=== PATIENT | male | born 1955 | race American Indian/Alaskan Native ===

== ENCOUNTER 2018-03-04 18:49 | Emergency (ER) | payer MEDICARE, OTHER ==
[2018-03-04 18:49] VITALS: BMI 30.9
[2018-03-04 18:56] VITALS: TEMP 97.3
[2018-03-04] MEDS ORDERED: Albuterol-Ipratrop 3 mg / 0.5 (3 ml) UD INH STA (19:16)
[2018-03-04] MEDS ORDERED: Albuterol-Ipratrop 3 mg / 0.5 (3 ml) UD ONE ×2 (19:19→19:32)
[2018-03-04] MEDS ORDERED: Magnesium Sulfate 1 gm in D5W 2 GM/200 ML BAG IVPB ONE (19:20)
[2018-03-04] MEDS: Magnesium Sulfate 1 gm in D5W 1 GM/100 ML BAG IVPB SCH ×2 (19:25→20:32)
[2018-03-04 19:26] LABS: BASO # 0.1 K/uL (0.0-0.2); BASO % 0.5 % (0.0-2.0); EOS % 0.1 % (0.0-4.0); HEMOGLOBIN 14.2 g/dL (12.0-18.0); LYMPH # 1.7 K/uL (1.0-4.3); LYMPH % 14.2 % (20.0-40.0); MEAN CORPUSCULAR HEMOGLOBIN 30.3 pg (27.0-31.0); MEAN CORPUSCULAR HGB CONC 34.1 g/dL (33.0-37.0); MONO # 0.3 K/uL (0.0-0.8); MONO % 2.8 % (0.0-10.0); NEUT % 82.4 % (50.0-75.0); NRBC % 0.1 % (0.0-2.0); RBC 4.67 Mil/uL (4.40-5.90); RED CELL DISTRIBUTION WIDTH 13.7 % (11.5-14.5); WHITE BLOOD COUNT 12.2 K/uL (4.8-10.8)
[2018-03-04 19:29] LABS: MEAN CELL VOLUME 88.9 fL (80.0-94.0)
[2018-03-04 19:41] LABS: ALB/GLOB RATIO 1.7 (1.0-2.1); ALBUMIN 4.7 g/dL (3.5-5.0); ALT/SGPT 43 U/L (21-72); AST/SGOT 35 U/L (17-59); BLOOD UREA NITROGEN 14 mg/dL (9-20); CALCIUM 9.5 mg/dl (8.6-10.4); GFR NON-AFRICAN AMERICAN > 60
[2018-03-04 20:08] VITALS: BP 121/73; PULSE 91; RESP 20; O2SAT 96
--- NOTE | 2018-03-04 20:48 | C.PDOC ---
History Of Present Illness 62 y/o male presents to the ED c/o SOB for one day. The patient reports an occasional productive cough. Otherwise, he denies any fever, chest pain or chills. The patient admits to being a smoker. Time Seen by Provider: 03/04/18 19:01 Chief Complaint (Nursing): Shortness Of Breath History Per: Patient History/Exam Limitations: no limitations Onset/Duration Of Symptoms: Days Current Symptoms Are (Timing): Still Present Associated Symptoms: Productive Cough (occasional). denies: Fever, Chills, Chest Pain Recent travel outside of the [place]: No Past Medical History Reviewed: Historical Data, Nursing Documentation, Vital Signs Vital Signs: Last Vital Signs Temp 97.3 F L 03/04/18 18:54 Pulse 91 H 03/04/18 20:08 Resp 20 03/04/18 20:08 BP 121/73 03/04/18 20:08 Pulse Ox 96 03/04/18 21:34 - Medical History PMH: Asthma, COPD, Diabetes, Gastrointestinal Ulcer, HTN, Hypercholesterolemia, Schizophrenia Denies: Chronic Kidney Disease Other Surgeries: GI surgery hood to ulcer - [facility] Procedures TETANUS TOXOID ADMINIST (07/10/14) Family History: States: Unknown Family Hx - Social History Hx Tobacco Use: Yes Hx Alcohol Use: Yes (stopped last april) Hx Substance Use: No - Immunization History Hx Tetanus Toxoid Vaccination: (unk) Hx Influenza Vaccination: No Hx Pneumococcal Vaccination: No Review Of Systems Except As Marked, All Systems Reviewed And Found Negative. Constitutional: Negative for: Fever, Chills Cardiovascular: Negative for: Chest Pain Respiratory: Positive for: Cough (occasional productive cough), Shortness of Breath Physical Exam - Physical Exam Appears: Well, Non-toxic, No Acute Distress Skin: Normal Color, Warm, Dry Head: Atraumatic, Normacephalic Eye(s): bilateral: PERRL, EOMI Ear(s): Bilateral: Normal Oral Mucosa: Moist Neck: Normal ROM Chest: Symmetrical Cardiovascular: Rhythm Regular, No Murmur Respiratory: Normal Breath Sounds, No Rales, No Rhonchi, No Stridor, Wheezing ( minimal respiratory whezzing) Gastrointestinal/Abdominal: Soft, No Tenderness, No Distention Rectal: Deferred Extremity: Normal ROM, No Calf Tenderness Extremity: Bilateral: Normal Color And Temperature, Normal ROM Pulses: Left Dorsalis Pedis: Normal, Right Dorsalis Pedis: Normal Neurological/Psych: Oriented x3, Normal Speech Gait: Steady ED Course And Treatment - Laboratory Results Result Diagrams: 03/04/18 19:24 03/04/18 19:24 ECG: Interpreted By Me Interpretation Of EC bpm. Normal axis and intervals. O2 Sat by Pulse Oximetry: 96 (RA) Pulse Ox Interpretation: Normal Medical Decision Making Medical Decision Making: Impression: 62 y/o male with SOB for one day, occasional productive cough, and minimal respiratory wheezing Plan: -CMP -CBC -Chest X-Ray -Albutrerol treatment -Magnesium sulfate 1gm/100 ml -SOLU-Medrol Disposition - Disposition Referrals: [facility] Yomi Thomas, [Non-Staff] - Disposition: HOME/ ROUTINE Disposition Time: 20:30 Condition: IMPROVED Additional Instructions: KIMBERLI MORGAN, thank you for letting us take care of you today. Your provider was Roby Wolff DO and you were treated for ASTHMA. The emergency medical care you received today was directed at your acute symptoms. If you were prescribed any medication, please fill it and take as directed. It may take several days for your symptoms to resolve. Return to the Emergency Department if your symptoms worsen, do not improve, or if you have any other problems. Please contact your doctor or call one of the physicians/clinics you have been referred to that are listed on the Patient Visit Information form that is included in your discharge packet. Bring any paperwork you were given at discharge with you along with any medications you are taking to your follow up visit. Our treatment cannot replace ongoing medical care by a primary care provider outside of the emergency department. Thank you for allowing the [facility] team to be part of your care today. Followup with you primary care doctor in 2-3 days for re-evaluation and further management. Prescriptions: Albuterol Sulfate [Ventolin Hfa] 2 puff IH Q4 PRN #1 unit PRN Reason: wheeze Benzonatate [Tessalon Perle] 100 mg PO Q8 PRN #15 capsule PRN Reason: Cough predniSONE [Prednisone] 40 mg PO DAILY #10 tab Ranitidine HCl [Zantac] 150 mg PO BID #20 tablet Instructions: Asthma, Adult (DC) Forms: [facility] (Yemeni) - Clinical Impression Clinical Impression: Bronchitis, Asthma attack - PA / WASTE ELIMINATION / Resident Statement MD/DO has reviewed & agrees with the documentation as recorded. - Scribe Statement The provider has reviewed the documentation as recorded by the Scribe (Nohemi Barboza) Provider Attestation: All medical record entries made by the Scribe were at my direction and personally dictated by me. I have reviewed the chart and agree that the record accurately reflects my personal performance of the history, physical exam, medical decision making, and the department course for this patient. I have also personally directed, reviewed, and agree with the discharge instructions and disposition.
--- NOTE | 2018-03-05 13:08 | RAD ---
Date of service: 03/04/2018 PROCEDURE: CHEST RADIOGRAPH, 1 VIEW HISTORY: SOB COMPARISON: Comparison chest 01/30/2014. . FINDINGS: LUNGS: There is a vague nodular density seen in the left lateral lower lung field which could represent confluence of shadow artifact however small granuloma for parenchymal nodule not excluded. Followup nonemergent CT scan of the chest recommended for further evaluation. Lung turk are otherwise clear. PLEURA: No pneumothorax or pleural fluid seen. CARDIOVASCULAR: Normal. OSSEOUS STRUCTURES: No significant abnormalities. VISUALIZED UPPER ABDOMEN: Normal. OTHER FINDINGS: None. IMPRESSION: There is a vague nodular density seen in the left lateral lower lung field which could represent confluence of shadow artifact however small granuloma for parenchymal nodule not excluded. Followup nonemergent CT scan of the chest recommended for further evaluation. Lung turk are otherwise clear. . Note that this report was placed in PA review folder followup.
--- NOTE | 2018-03-08 22:18 | CARD ---
APPROVED REPORT Date of service: 03/04/2018 EKG Measurement Heart [id number] <Conclusion> Normal sinus rhythm Normal ECG
== END 2018-03-04 20:56 | disposition home or self-care (01) ==
LOC: C.ER 18:49
DX: J45.909 Unspecified asthma, uncomplicated (principal)
CPT/HCPCS: 71045; 80053; 85025; 93005; 94640; 96365; 96375; 96376; 99284; J2930; J3475

== ENCOUNTER 2018-07-02 15:01 | Emergency (ER) | payer MEDICARE, OTHER ==
[2018-07-02 15:01] VITALS: BMI 30.9
[2018-07-02] MEDS ORDERED: Albuterol-Ipratrop 3 mg / 0.5 (3 ml) UD INH STA ×3 (15:51→17:06)
[2018-07-02] MEDS ORDERED: Albuterol-Ipratrop 3 mg / 0.5 (3 ml) UD ONE ×3 (15:52→17:07)
--- NOTE | 2018-07-02 17:28 | C.PDOC ---
History Of Present Illness 62 year old male with a history of COPD presents to the emergency department with complaints of increased shortness of breath and intermittent cough. He denies fever, and any other complaints. Time Seen by Provider: 07/02/18 15:46 Chief Complaint (Nursing): Shortness Of Breath History Per: Patient History/Exam Limitations: no limitations Onset/Duration Of Symptoms: Hrs Current Symptoms Are (Timing): Still Present Associated Symptoms: Other (shortness of breath, cough). denies: Fever Past Medical History Reviewed: Historical Data, Nursing Documentation, Vital Signs Vital Signs: Last Vital Signs Temp 98.0 F 07/02/18 15:20 Pulse 110 H 07/02/18 15:20 Resp 22 07/02/18 15:20 BP 142/85 07/02/18 15:20 Pulse Ox 95 07/02/18 15:20 - Medical History PMH: Asthma, COPD, Diabetes, Gastrointestinal Ulcer, HTN, Hypercholesterolemia, Schizophrenia Denies: Chronic Kidney Disease Surgical History: No Surg Hx - [facility] Procedures TETANUS TOXOID ADMINIST (07/10/14) Family History: States: No Known Family Hx - Social History Hx Tobacco Use: Yes Hx Alcohol Use: Yes (stopped last april) Hx Substance Use: No - Immunization History Hx Tetanus Toxoid Vaccination: (unk) Hx Influenza Vaccination: No Hx Pneumococcal Vaccination: No Review Of Systems Constitutional: Negative for: Fever, Chills Respiratory: Positive for: Cough, Shortness of Breath Gastrointestinal: Negative for: Nausea, Vomiting, Abdominal Pain, Diarrhea Physical Exam - Physical Exam Appears: Well, Non-toxic, No Acute Distress Skin: Normal Color, Warm Head: Atraumatic, Normacephalic Eye(s): bilateral: Normal Inspection, PERRL, EOMI Nose: Normal Oral Mucosa: Moist Neck: Normal, Supple Chest: Symmetrical, No Tenderness Cardiovascular: Rhythm Regular, No Murmur Respiratory: Decreased Breath Sounds, No Rales, No Rhonchi, Wheezing (mild wheezing) Gastrointestinal/Abdominal: Normal Exam, Soft, No Tenderness, No Guarding, No Rebound Extremity: Normal ROM Neurological/Psych: Oriented x3, Normal Speech, Normal Cognition ED Course And Treatment O2 Sat by Pulse Oximetry: 95 (RA) Pulse Ox Interpretation: Normal Medical Decision Making Medical Decision Making: Plan: Albuterol Solu-Medtrol 125mg IV Patient in no distress, speaking in full sentences. Given IV solumedrol and duoneb x2 treatments. On re-eval patient states that he feels better and would like to be discharged. Disposition - Disposition Disposition: HOME/ ROUTINE Disposition Time: 17:35 Condition: GOOD Additional Instructions: KIMBERLI MORGAN, thank you for letting us take care of you today. Your provider was Merry Steinberg MD and you were treated for ASTHMA. The emergency medical care you received today was directed at your acute symptoms. If you were prescribed any medication, please fill it and take as directed. It may take several days for your symptoms to resolve. Return to the Emergency Department if your symptoms worsen, do not improve, or if you have any other problems. Please contact your doctor or call one of the physicians/clinics you have been referred to that are listed on the Patient Visit Information form that is included in your discharge packet. Bring any paperwork you were given at discharge with you along with any medications you are taking to your follow up visit. Our treatment cannot replace ongoing medical care by a primary care provider outside of the emergency department. Thank you for allowing the [facility] team to be part of your care today. If you had an X-Ray or CT scan: A Radiologist will review the ED reading if any change in treatment is needed we will contact you. If you had a blood, urine, or wound culture: It will take several days for the results, if any change in treatment is needed we will contact you. If you had an STI test: It will take 48 hours for the results. Please call after 1 week if you have not heard back. Instructions: Exacerbation of COPD (DC) Forms: [employer] (Mongolian) - Clinical Impression Clinical Impression: COPD (chronic obstructive pulmonary disease) - Scribe Statement The provider has reviewed the documentation as recorded by the Scribe (Raghav Gerald) Provider Attestation: All medical record entries made by the Scribe were at my direction and personally dictated by me. I have reviewed the chart and agree that the record accurately reflects my personal performance of the history, physical exam, medical decision making, and the department course for this patient. I have also personally directed, reviewed, and agree with the discharge instructions and disposition.
[2018-07-02 17:45] VITALS: BP 139/82; PULSE 95; RESP 18; TEMP 98.1
[2018-07-02 22:03] VITALS: O2SAT 95
== END 2018-07-02 17:44 | disposition home or self-care (01) ==
LOC: C.ER 15:01
DX: J44.9 Chronic obstructive pulmonary disease, unspecified (principal); F17.210 Nicotine dependence, cigarettes, uncomplicated
CPT/HCPCS: 94640; 96374; 99284; J2930

== ENCOUNTER 2018-07-21 16:15 | Inpatient (IN) | payer MEDICARE, OTHER ==
[2018-07-21 16:15] VITALS: BMI 30.9
--- NOTE | 2018-07-21 17:09 | C.PDOC ---
History Of Present Illness 62 y/o male with a PMHx of asthma, psychiatric illness, HLD, HTN, and homelessness, presents from senior care for SOB and wheezing for 1 day. No fevers or other complaints. Time Seen by Provider: 07/21/18 17:03 Chief Complaint (Nursing): Chest Pain History Per: Patient History/Exam Limitations: no limitations Onset/Duration Of Symptoms: Days (x 1) Current Symptoms Are (Timing): Still Present Past Medical History Reviewed: Historical Data, Nursing Documentation, Vital Signs Vital Signs: Last Vital Signs Temp 97.7 F 07/21/18 16:20 Pulse 116 H 07/21/18 16:20 Resp 23 07/21/18 16:20 BP 152/91 H 07/21/18 16:20 Pulse Ox 99 07/21/18 16:20 - Medical History PMH: Asthma, COPD, Diabetes, Gastrointestinal Ulcer, HTN, Hypercholesterolemia, Schizophrenia Denies: Chronic Kidney Disease - [facility] Procedures TETANUS TOXOID ADMINIST (07/10/14) Family History: States: Unknown Family Hx - Social History Hx Tobacco Use: Yes Hx Alcohol Use: Yes (stopped last april) Hx Substance Use: No - Immunization History Hx Tetanus Toxoid Vaccination: No Hx Influenza Vaccination: No Hx Pneumococcal Vaccination: No Review Of Systems Except As Marked, All Systems Reviewed And Found Negative. Constitutional: Negative for: Fever, Chills Cardiovascular: Negative for: Chest Pain Respiratory: Positive for: Shortness of Breath, Wheezing Gastrointestinal: Negative for: Nausea, Vomiting Neurological: Negative for: Weakness, Dizziness Physical Exam - Physical Exam Appears: Non-toxic, No Acute Distress Skin: Normal Color, Warm, Dry Head: Atraumatic, Normacephalic Eye(s): bilateral: Normal Inspection, PERRL, EOMI Oral Mucosa: Moist Neck: Normal ROM Chest: Symmetrical Cardiovascular: Rhythm Regular, No Murmur Respiratory: No Accessory Muscle Use, No Rhonchi, Wheezing (diffusely) Gastrointestinal/Abdominal: Soft, No Tenderness, No Distention Extremity: Bilateral: Atraumatic, Normal ROM Pulses: Left Dorsalis Pedis: Normal, Right Dorsalis Pedis: Normal Neurological/Psych: Oriented x3, Normal Speech ED Course And Treatment - Laboratory Results Result Diagrams: 07/21/18 17:22 07/21/18 17:22 ECG: Interpreted By Me, Viewed By Me ECG Rhythm: Sinus Tachycardia, Nonspecific Changes Interpretation Of ECG: nonspecific ST/T wave changes Rate From EC (bpm) O2 Sat by Pulse Oximetry: 99 (RA) Pulse Ox Interpretation: Normal Medical Decision Making Medical Decision Making: Impression: SOB, Wheezing, also ekg changes, suspect rate related Plan: -CMP, CBC, cardiac enzymes, coags -EKG -Chest x-ray -Duoneb INH x3 -125 mg IV Solu-Medrol trop neg. discussed with dr saavedra accflora for obs. persistent wheezing. poor outpt candidate given social situation. Disposition - Disposition Disposition: HOSPITALIZED Disposition Time: 20:00 Condition: STABLE - Clinical Impression Clinical Impression: Asthma, Abnormal EKG - Scribe Statement The provider has reviewed the documentation as recorded by the Eleonora Braga Provider Attestation: All medical record entries made by the Eleonora were at my direction and person ally dictated by me. I have reviewed the chart and agree that the record accurately reflects my personal performance of the history, physical exam, medical decision making, and the department course for this patient. I have also personally directed, reviewed, and agree with the discharge instructions and disposition. Decision To Admit - Pt Status Changed To: Hospital Disposition Of: Observation - . Bed Request Type: Telemetry Admitting Physician: Bang Saavedra Jr. Patient Diagnosis: Asthma, Abnormal EKG
[2018-07-21] MEDS ORDERED: MethylPREDNISolone 40 mg Vial IVP STA (17:10)
[2018-07-21] MEDS ORDERED: Albuterol-Ipratrop 3 mg / 0.5 (3 ml) UD INH STA ×3 (17:10)
[2018-07-21 17:26] LABS: BASO # 0.1 K/uL (0.0-0.2); EOS # 0.2 K/uL (0.0-0.7); EOS % 1.6 % (0.0-4.0); HEMOGLOBIN 14.2 g/dL (12.0-18.0); LYMPH # 2.1 K/uL (1.0-4.3); LYMPH % 14.3 % (20.0-40.0); MEAN CELL VOLUME 89.8 fL (80.0-94.0); MEAN CORPUSCULAR HEMOGLOBIN 30.2 pg (27.0-31.0); MEAN CORPUSCULAR HGB CONC 33.7 g/dL (33.0-37.0); MEAN PLATELET VOLUME 8.3 fL (7.2-11.7); MONO # 1.5 K/uL (0.0-0.8); MONO % 10.6 % (0.0-10.0); NEUT # 10.5 K/uL (1.8-7.0); NEUT % 72.5 % (50.0-75.0); RBC 4.7 Mil/uL (4.40-5.90); RED CELL DISTRIBUTION WIDTH 13.7 % (11.5-14.5); WHITE BLOOD COUNT 14.5 K/uL (4.8-10.8)
[2018-07-21] MEDS ORDERED: Albuterol-Ipratrop 3 mg / 0.5 (3 ml) UD ONE (17:31)
[2018-07-21 17:40] LABS: ALB/GLOB RATIO 1.5 (1.0-2.1); ALBUMIN 4.4 g/dL (3.5-5.0); ALT/SGPT 34 U/L (21-72); AST/SGOT 41 U/L (17-59); BLOOD UREA NITROGEN 13 mg/dL (9-20); GFR NON-AFRICAN AMERICAN > 60
[2018-07-21 17:44] LABS: INR 1.1; PROTHROMBIN TIME 11.5 SECONDS (9.7-12.2)
[2018-07-21 17:52] LABS: B-TYPE NATRIURETIC PEPTIDE 37.6 pg/mL (0-900)
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
[2018-07-21 19:51] LABS: ABG ALLEN TEST POS; ARTERIAL BLOOD GAS HCO3 25.9 mmol/L (21-28); ARTERIAL BLOOD GAS O2 SAT 98.2 % (95-98); ARTERIAL BLOOD GAS PCO2 36 mm/Hg (35-45); ARTERIAL BLOOD GAS PH 7.45 (7.35-7.45); ARTERIAL BLOOD GAS PO2 73 mm/Hg (80-100); ARTERIAL BLOOD GAS TCO2 26.1 mmol/L (22-28)
[2018-07-21] MEDS ORDERED: Dextrose 50% SYRINGE Inj (50 ml) IV PRN (19:51)
[2018-07-21] MEDS ORDERED: Glucagon Recombinant 1 mg Inj IM PRN (19:51)
[2018-07-21] MEDS: (Novolin R) Insulin Human Regular 100 units/ml vial SC SCH (21:40)
[2018-07-21] MEDS: MethylPREDNISolone 40 mg Vial IV SCH (21:40)
[2018-07-21 22:49] LABS: URINE BILIRUBIN NEGATIVE (NEGATIVE); URINE BLOOD NEGATIVE (NEGATIVE); URINE CLARITY Clear (Clear); URINE COLOR Straw (YELLOW); URINE GLUCOSE (UA) 3+ mg/dL (Normal); URINE LEUKOCYTE ESTERASE NEG Leu/uL (Negative); URINE PROTEIN NEGATIVE (NEGATIVE); URINE UROBILINOGEN NORMAL mg/dL (0.2-1.0)
[2018-07-21 22:58] LABS: HEPATITIS B SURFACE AG Negative (NEGATIVE)
[2018-07-21 23:03] LABS: HEPATITIS A IGM NEGATIVE (NEGATIVE)
[2018-07-21 23:04] LABS: HEPATITIS B CORE AB NEGATIVE (NEGATIVE)
[2018-07-21 23:15] LABS: HEPATITIS C ANTIBODY NEGATIVE (NEGATIVE)
[2018-07-22] MEDS: Albuterol-Ipratrop 3 mg / 0.5 (3 ml) UD INH SCH ×4 (01:04→12:00)
[2018-07-22] MEDS: (Novolin R) Insulin Human Regular 100 units/ml vial SC SCH ×4 (08:13→22:09)
[2018-07-22] MEDS: MethylPREDNISolone 40 mg Vial IV SCH ×2 (09:55→22:13)
[2018-07-22] MEDS ORDERED: Pantoprazole 40 mg EC Tab PO SCH (10:00)
--- NOTE | 2018-07-22 10:30 | RAD ---
HISTORY: chest pain COMPARISON: Chest x-ray performed 03/04/18 TECHNIQUE: Chest, one view. FINDINGS: LUNGS: 9 mm focal patchy opacity at the left lung base presumably related to atelectasis. Nodule is not excluded. Please note that chest x-ray has limited sensitivity for the detection of pulmonary masses. PLEURA: No significant pleural effusion identified. No definite pneumothorax . CARDIOVASCULAR: Heart size appears within normal limits. No significant atherosclerotic calcification identified. OSSEOUS STRUCTURES: No acute osseous abnormality identified. VISUALIZED UPPER ABDOMEN: Unremarkable. OTHER FINDINGS: None. IMPRESSION: 9 mm focal patchy opacity at the left lung base presumably related to atelectasis. Nodule is not excluded. Recommend outpatient follow-up chest PA and lateral or CT of the chest if indicated. Study marked for PA review.
--- NOTE | 2018-07-22 12:44 | CP.PCM.PN ---
Subjective - Date & Time of Evaluation Date of Evaluation: 07/22/18 Time of Evaluation: 08:45 - Subjective Subjective: Patient examined at bedside. No acute overnight events. Patient reports continued SOB with cough and wheeze. Pt reports improvement in symptoms since admission, claiming it was the [facility] and [facility] environment [facility] that led to this exacerbation Pt also reports he has been using his albuterol inhaler excessively, approx 10-20x/day, and ran out of his medication yesterday morning with no way to refill it. Denies dizziness, chest pain, nausea, diarrhea. Objective - Vital Signs/Intake and Output Vital Signs (last 24 hours): Temp Pulse Resp BP Pulse Ox 97.8 F 81 20 118/77 99 07/22/18 07:12 07/22/18 10:33 07/22/18 07:12 07/22/18 07:12 07/22/18 07:12 Intake and Output: 07/22/18 07/22/18 06:59 18:59 Intake Total 300 Balance 300 - Medications Medications: Current Medications Albuterol/Ipratropium (Duoneb 3 Mg/0.5 Mg (3 Ml) Ud) 3 ml INH RQ4 [facility] Last Admin: 07/22/18 07:45 Dose: 3 ml Dextrose (Dextrose 50% Inj) 0 ml IV STAT PRN; Protocol PRN Reason: Hypoglycemia Protocol Dextrose (Glutose 15) 0 gm PO ONCE PRN; Protocol PRN Reason: Hypoglycemia Protocol Glucagon (Glucagen Diagnostic Kit) 0 mg IM STAT PRN; Protocol PRN Reason: Hypoglycemia Protocol Heparin Sodium (Porcine) (Heparin) 5,000 units SC Q12 [facility] Last Admin: 07/22/18 09:56 Dose: 5,000 units Dextrose (Dextrose 5% In Water 1000 Ml) 1,000 mls @ 0 mls/hr IV .Q0M PRN; Pr otocol PRN Reason: Hypoglycemia Protocol Insulin Human Regular (Novolin R) 0 unit SC ACHS [facility]; Protocol Last Admin: 07/22/18 11:38 Dose: 6 units Methylprednisolone (Solu-Medrol) 40 mg IV Q12 [facility] Last Admin: 07/22/18 09:55 Dose: 40 mg Nicotine (Nicoderm Cq) 1 patch TD DAILY [facility] Last Admin: 07/22/18 09:59 Dose: Not Given Pantoprazole Sodium (Protonix Inj) 40 mg IVP DAILY [facility] Last Admin: 07/22/18 09:56 Dose: 40 mg Rosuvastatin Calcium (Crestor) 5 mg PO HS [facility] Last Admin: 07/21/18 21:40 Dose: 5 mg - Labs Labs: 07/21/18 17:22 07/21/18 17:22 PT 11.5 SECONDS (9.7-12.2) 07/21/18 17:22 INR 1.1 07/21/18 17:22 APTT 29 SECONDS (21-34) 07/21/18 17:22 - Constitutional Appears: Non-toxic, No Acute Distress - Head Exam Head Exam: ATRAUMATIC, NORMAL INSPECTION, NORMOCEPHALIC - Eye Exam Eye Exam: EOMI, Normal appearance - ENT Exam ENT Exam: Mucous Membranes Moist, Normal Exam - Neck Exam Neck Exam: Normal Inspection - Respiratory Exam Respiratory Exam: Wheezes, NORMAL BREATHING PATTERN. absent: Respiratory Di stress - Cardiovascular Exam Cardiovascular Exam: REGULAR RHYTHM. absent: Tachycardia - GI/Abdominal Exam GI & Abdominal Exam: Soft. absent: Distended, Tenderness - Extremities Exam Extremities Exam: absent: Calf Tenderness, Pedal Edema Additional comments: Toenails thickened and discolored - Neurological Exam Neurological Exam: Awake, Oriented x3 - Psychiatric Exam Psychiatric exam: Agitated Additional comments: tangential thoughts, inappropriate comments - Skin Skin Exam: Dry, Intact, Normal Color, Warm. absent: Cyanosis Assessment and Plan - Assessment and Plan (Free Text) Assessment: 62 year old male with pmhx of asthma, COPD, DM2, HTN and schizophrenia(per notes) admitted for treatment of acute asthma exacerbation Plan: Acute asthma exacerbation -telemetry discontinued; no indication -nebulizer, duonebs-change from scheduled to q4h prn -IV steroids, solu-medrol 40mg IV q12h -O2 NC, 2L prn -f/u sputum cx -pulmonology consult, Dr. Amanda DM2 -hold home metformin -accuchecks asc -hypoglycemia protocol -ISS achs HTN -denies current medication use -continue to monitor, BP stable and WNL Schizophrenia -patient denies, no recorded medication, stable at this time Ppx -GI ppx: protonix w/ IV steroids -VTE ppx: heparin [address] Alonso Sheffield, PGY-1
--- NOTE | 2018-07-22 14:26 | CP.PCM.CON ---
History of Present Illness - History of Present Illness History of Present Illness: Ms. Ibanez is 62yo M with PMHx significant for asthma, COPD and homelessness, who presented to the ED yesterday evening with complaints of wheezing and SOB that began yesterday morning. He states that he recently lost his apartment in [place], and has been in-and-out of a alf in [place] for the past few weeks. Because of this, he has been unable to obtain his inhalers and spends many hours outside in the cold weather, which has further exacerbated his symptoms. Patient reports a long-standing history of asthma since childhood, with subsequent development of COPD secondary to his >40 year smoking history. He has had multiple similar episodes of breathing difficulties in the past, including an instance where he came here to the ED a few weeks ago on 07/02. He received 2x rounds of Duonebs and IV Solu-Medrol with improvement of symptoms before being discharged the same day. At this time, patient reports his breath ing to be improved since receiving treatments in ED yesterday. Currently no signs of tachypnea or respiratory distress. Patient denies any chest pain, nausea, vomiting or hemoptysis. No other complaints are noted at this time. ROS: (+) SOB, wheezing, cough All other systems are negative unless stated in HPI PMHx: COPD, asthma (since childhood), T2DM, unknown psych disorder Code status: Full code Social Hx: Currently homeless, reports being in and out of alf. Patient reports >20py history of smoking tobacco, also reports infrequent EtOH use (most recently 2 beers last weekend) and prior use of marijuana (quit years ago). Denies any other illicit drug use. Allergies: NKDA Home Medications: Albuterol INH prn, Metformin 1000mg BID, simvastatin 10mg PO qd, losartan 50mg PO qd, risperdol 4mg PO qHS, zantac 150mg PO BID; Patient reports frequent non-compliance due to financial and logistical matters. Of note, has also taken prednisone, tessolon perles, a nebulizer and zafirlukast in the past. Exam: Gen: No acute distress. AAOx3 HEENT: Moist mucosa. Card: RRRR. Lungs: Symmetric chest excursions. No tachypnea or respiratory distress noted. (+) Expiratory wheezing heard in all lung turk, with frequent coughing noted during auscultation. Abd: Soft, non-distended. Normal bowel sounds. No tenderness to palpation. Psych: Patient exhibited a flight of ideas, tangential speech, and splitting A&P 1. Asthma - Likely exacerbation of his chronic asthma/COPD, given the non-compliance of his medications and the cold-weather exacerbating the symptoms - Continue with current management of Duonebs and IV solu-medrol - Will need prescription for inhalers prior to discharge 2. COPD -CXR (07/21): reveals 9mm patchy opacity in the left lung base likely due to atelectasis -WBC 14.5 yesterday 3. Smoking -Patient requesting nicotine patch. -Patient was instructed on the importance of smoking cessation and the prognostic benefit to his COPD. He expressed his understanding and stated that he does need to quit soon Review of Systems - Review of Systems All systems: reviewed and no additional remarkable complaints except (shortness of breath and cough) Past Patient History - Infectious Disease Hx of Infectious Diseases: None - Past Social History Smoking Status: Heavy Smoker > 10 Cigarettes Daily - CARDIAC Hx Hypercholesterolemia: Yes Hx Hypertension: Yes - PULMONARY Hx Asthma: Yes Hx Chronic Obstructive Pulmonary Disease (COPD): Yes - NEUROLOGICAL Hx Neurological Disorder: No HX Cerebrovascular Accident: No - HEENT Hx HEENT Problems: No - RENAL Hx Chronic Kidney Disease: No - ENDOCRINE/METABOLIC Hx Endocrine Disorders: Yes Hx Diabetes Mellitus Type 1: Yes - HEMATOLOGICAL/ONCOLOGICAL Hx Blood Disorders: No Hx Cancer: No - INTEGUMENTARY Hx Dermatological Problems: No - MUSCULOSKELETAL/RHEUMATOLOGICAL Hx Musculoskeletal Disorders: No - GASTROINTESTINAL Hx Gastrointestinal Disorders: Yes - GENITOURINARY/GYNECOLOGICAL Hx Genitourinary Disorders: No - PSYCHIATRIC Hx Schizophrenia: Yes Hx Substance Use: No - SURGICAL HISTORY Other/Comment: GI surgery due to ulcer 35 yrs. ago - ANESTHESIA Hx Anesthesia: Yes Hx Anesthesia Reactions: No Hx Malignant Hyperthermia: No Meds Allergies/Adverse Reactions: Allergies Allergy/AdvReac Type Severity Reaction Status Date / Time cat dander Allergy ITCHING Verified 07/21/18 16:19 - Medications Medications: Current Medications Dextrose (Dextrose 50% Inj) 0 ml IV STAT PRN; Protocol PRN Reason: Hypoglycemia Protocol Dextrose (Glutose 15) 0 gm PO ONCE PRN; Protocol PRN Reason: Hypoglycemia Protocol Glucagon (Glucagen Diagnostic Kit) 0 mg IM STAT PRN; Protocol PRN Reason: Hypoglycemia Protocol Heparin Sodium (Porcine) (Heparin) 5,000 units SC Q12 [facility] Last Admin: 07/22/18 09:56 Dose: 5,000 units Dextrose (Dextrose 5% In Water 1000 Ml) 1,000 mls @ 0 mls/hr IV .Q0M PRN; Protocol PRN Reason: Hypoglycemia Protocol Insulin Human Regular (Novolin R) 0 unit SC ACHS [facility]; Protocol Last Admin: 07/22/18 11:38 Dose: 6 units Methylprednisolone (Solu-Medrol) 40 mg IV Q12 [facility] Last Admin: 07/22/18 09:55 Dose: 40 mg Nicotine (Nicoderm Cq) 1 patch TD DAILY [facility] Last Admin: 07/22/18 09:59 Dose: Not Given Pantoprazole Sodium (Protonix Inj) 40 mg IVP DAILY [facility] Last Admin: 07/22/18 09:56 Dose: 40 mg Rosuvastatin Calcium (Crestor) 5 mg PO HS [facility] Last Admin: 07/21/18 21:40 Dose: 5 mg Physical Exam - Head Exam Head Exam: ATRAUMATIC, NORMOCEPHALIC - ENT Exam ENT Exam: Mucous Membranes Moist - Respiratory Exam Respiratory Exam: Clear to Auscultation Bilateral - Cardiovascular Exam Cardiovascular Exam: REGULAR RHYTHM - GI/Abdominal Exam GI & Abdominal Exam: Normal Bowel Sounds, Soft - Extremities Exam Extremities exam: Positive for: normal inspection Results - Vital Signs Recent Vital Signs: Last Vital Signs Temp 97.8 F 07/22/18 07:12 Pulse 81 07/22/18 10:33 Resp 20 07/22/18 07:12 BP 118/77 07/22/18 07:12 Pulse Ox 99 07/22/18 07:12 - Labs Result Diagrams: 07/21/18 17:22 07/21/18 17:22 Labs: Laboratory Results - last 24 hr 07/21/18 07/21/18 07/21/18 17:22 17:22 17:22 WBC 14.5 H RBC 4.70 Hgb 14.2 Hct 42.2 MCV 89.8 MCH 30.2 MCHC 33.7 RDW 13.7 Plt Count 376 D MPV 8.3 Neut % (Auto) 72.5 Lymph % (Auto) 14.3 L Josephine % (Auto) 10.6 H Eos % (Auto) 1.6 Baso % (Auto) 1.0 Neut # (Auto) 10.5 H Lymph # (Auto) 2.1 Josephine # (Auto) 1.5 H Eos # (Auto) 0.2 Baso # (Auto) 0.1 PT 11.5 INR 1.1 APTT 29 Puncture Site pCO2 pO2 HCO3 ABG pH ABG Total CO2 ABG O2 Saturation ABG Base Excess Rohit Test ABG Potassium A-a O2 Difference Respiratory Index Glucose Lactate FiO2 Sodium 135 Potassium 4.9 Chloride 98 Carbon Dioxide 30 Anion Gap 12 BUN 13 Creatinine 1.2 Est GFR ( Amer) > 60 Est GFR (Non-Af Amer) > 60 POC Glucose (mg/dL) Random Glucose 117 H Calcium 9.0 Phosphorus Magnesium Total Bilirubin 0.7 AST 41 ALT 34 Alkaline Phosphatase 59 Troponin I < 0.0120 NT-Pro-B Natriuret Pep 37.6 Total Protein 7.4 Albumin 4.4 Globulin 3.0 Albumin/Globulin Ratio 1.5 Arterial Blood Potassium Urine Color Urine Clarity Urine pH Ur Specific Drag[place] Urine Protein Urine Glucose (UA) Urine Ketones Urine Blood Urine Nitrate Urine Bilirubin Urine Urobilinogen Ur Leukocyte Esterase Urine RBC (Auto) Hepatitis A IgM Ab Hep Bs Antigen Hep B Core IgM Ab Hepatitis C Antibody 07/21/18 07/21/18 07/21/18 18:52 18:52 19:45 WBC RBC Hgb Hct MCV MCH MCHC RDW Plt Count MPV Neut % (Auto) Lymph % (Auto) Josephine % (Auto) Eos % (Auto) Baso % (Auto) Neut # (Auto) Lymph # (Auto) Josephine # (Auto) Eos # (Auto) Baso # (Auto) PT INR APTT Puncture Site Lradial pCO2 36 pO2 73 L HCO3 25.9 ABG pH 7.45 ABG Total CO2 26.1 ABG O2 Saturation 98.2 H ABG Base Excess 1.3 Rohit Test Pos ABG Potassium 4.3 A-a O2 Difference 32.0 Respiratory Index 0.4 Glucose 245 H Lactate 1.5 FiO2 21.0 Sodium 134.0 Potassium Chloride 102.0 Carbon Dioxide Anion Gap BUN Creatinine Est GFR ( Amer) Est GFR (Non-Af Amer) POC Glucose (mg/dL) Random Glucose Calcium Phosphorus 3.1 Magnesium 1.8 Total Bilirubin AST ALT Alkaline Phosphatase Troponin I NT-Pro-B Natriuret Pep Total Protein Albumin Globulin Albumin/Globulin Ratio Arterial Blood Potassium 4.3 Urine Color Urine Clarity Urine pH Ur Specific [place] Urine Protein Urine Glucose (UA) Urine Ketones Urine Blood Urine Nitrate Urine Bilirubin Urine Urobilinogen Ur Leukocyte Esterase Urine RBC (Auto) Hepatitis A IgM Ab Negative Hep Bs Antigen Negative Hep B Core IgM Ab Negative Hepatitis C Antibody Negative 07/21/18 07/21/18 07/22/18 21:03 22:00 02:07 WBC RBC Hgb Hct MCV MCH MCHC RDW Plt Count MPV Neut % (Auto) Lymph % (Auto) Josephine % (Auto) Eos % (Auto) Baso % (Auto) Neut # (Auto) Lymph # (Auto) Josephine # (Auto) Eos # (Auto) Baso # (Auto) PT INR APTT Puncture Site pCO2 pO2 HCO3 ABG pH ABG Total CO2 ABG O2 Saturation ABG Base Excess Rohit Test ABG Potassium A-a O2 Difference Respiratory Index Glucose Lactate FiO2 Sodium Potassium Chloride Carbon Dioxide Anion Gap BUN Creatinine Est GFR ( Amer) Est GFR (Non-Af Amer) POC Glucose (mg/dL) 323 H 339 H Random Glucose Calcium Phosphorus Magnesium Total Bilirubin AST ALT Alkaline Phosphatase Troponin I NT-Pro-B Natriuret Pep Total Protein Albumin Globulin Albumin/Globulin Ratio Arterial Blood Potassium Urine Color Straw Urine Clarity Clear Urine pH 7.0 Ur Specific [place] 1.003 Urine Protein Negative Urine Glucose (UA) 3+ H Urine Ketones Negative Urine Blood Negative Urine Nitrate Negative Urine Bilirubin Negative Urine Urobilinogen Normal Ur Leukocyte Esterase Neg Urine RBC (Auto) < 1 Hepatitis A IgM Ab Hep Bs Antigen Hep B Core IgM Ab Hepatitis C Antibody 07/22/18 07/22/18 07/22/18 06:35 07:55 11:15 WBC RBC Hgb Hct MCV MCH MCHC RDW Plt Count MPV Neut % (Auto) Lymph % (Auto) Josephine % (Auto) Eos % (Auto) Baso % (Auto) Neut # (Auto) Lymph # (Auto) Josephine # (Auto) Eos # (Auto) Baso # (Auto) PT INR APTT Puncture Site pCO2 pO2 HCO3 ABG pH ABG Total CO2 ABG O2 Saturation ABG Base Excess Rohit Test ABG Potassium A-a O2 Difference Respiratory Index Glucose Lactate FiO2 Sodium Potassium Chloride Carbon Dioxide Anion Gap BUN Creatinine Est GFR ( Amer) Est GFR (Non-Af Amer) POC Glucose (mg/dL) 284 H 252 H 284 H Random Glucose Calcium Phosphorus Magnesium Total Bilirubin AST ALT Alkaline Phosphatase Troponin I NT-Pro-B Natriuret Pep Total Protein Albumin Globulin Albumin/Globulin Ratio Arterial Blood Potassium Urine Color Urine Clarity Urine pH Ur Specific [place] Urine Protein Urine Glucose (UA) Urine Ketones Urine Blood Urine Nitrate Urine Bilirubin Urine Urobilinogen Ur Leukocyte Esterase Urine RBC (Auto) Hepatitis A IgM Ab Hep Bs Antigen Hep B Core IgM Ab Hepatitis C Antibody Assessment & Plan - Assessment and Plan (Free Text) Assessment: 62 y/o male with PMHx of COPD, asthma, psych d/o (per ED note), HTN and homelessness presents to ED w/ SOB, patient has long history of smoking COPD exacerbation triggered by cold weather IV steroids Nebulizer treatment Nicotine patch Pulmonary function test
[2018-07-22 18:04] LABS: BASO # 0.1 K/uL (0.0-0.2); BASO % 0.4 % (0.0-2.0); LYMPH % 7.4 % (20.0-40.0); MEAN CELL VOLUME 89.2 fL (80.0-94.0); MEAN CORPUSCULAR HEMOGLOBIN 29.7 pg (27.0-31.0); MEAN CORPUSCULAR HGB CONC 33.3 g/dL (33.0-37.0); MEAN PLATELET VOLUME 8.9 fL (7.2-11.7); MONO # 0.6 K/uL (0.0-0.8); MONO % 4.4 % (0.0-10.0); NEUT # 12.4 K/uL (1.8-7.0); NEUT % 87.8 % (50.0-75.0); PLATELET COUNT 353 K/uL (130-400); RBC 4.37 Mil/uL (4.40-5.90); RED CELL DISTRIBUTION WIDTH 13.7 % (11.5-14.5); WHITE BLOOD COUNT 14.1 K/uL (4.8-10.8)
[2018-07-22 18:38] LABS: BANDS 1 % (0-2); EOSINOPHIL 1 % (0-4); LYMPHOCYTE 8 % (20-40); MONOCYTE 5 % (0-10); NEUTROPHIL 85 % (50-75); TOTAL CELLS COUNTED 100
[2018-07-22 18:39] LABS: PLATELET ESTIMATE NORMAL (NORMAL)
[2018-07-22 18:42] LABS: ALB/GLOB RATIO 1.3 (1.0-2.1); ALBUMIN 3.8 g/dL (3.5-5.0); ALT/SGPT 31 U/L (21-72); AST/SGOT 26 U/L (17-59); BLOOD UREA NITROGEN 23 mg/dL (9-20); CALCIUM 8.9 mg/dl (8.6-10.4); GFR NON-AFRICAN AMERICAN 56; HDL CHOLESTEROL 53 mg/dL (30-70)
[2018-07-22 18:48] LABS: LDL CHOLESTEROL 144 mg/dL (0-129)
[2018-07-22] MEDS: Albuterol-Ipratrop 3 mg / 0.5 (3 ml) UD INH PRN (19:34)
[2018-07-23] MEDS: (Novolin R) Insulin Human Regular 100 units/ml vial SC SCH ×4 (08:00→21:49)
[2018-07-23] MEDS: MethylPREDNISolone 40 mg Vial IV SCH ×2 (09:14→21:49)
[2018-07-23] MEDS ORDERED: Albuterol-Ipratrop 3 mg / 0.5 (3 ml) UD INH STA (09:19)
--- NOTE | 2018-07-23 11:01 | CP.PCM.PN ---
Subjective - Date & Time of Evaluation Date of Evaluation: 07/23/18 Time of Evaluation: 09:40 - Subjective Subjective: Patient seen and examined Patient states shortness of breath and cough is improving Afebrile Alert and oriented and lying comfortably in no distress Objective - Vital Signs/Intake and Output Vital Signs (last 24 hours): Temp Pulse Resp BP Pulse Ox 97.9 F 88 20 107/71 95 07/23/18 08:00 07/23/18 08:00 07/23/18 08:00 07/23/18 08:00 07/23/18 08:00 Intake and Output: 07/23/18 07/23/18 06:59 18:59 Output Total 400 Balance -400 - Medications Medications: Current Medications Albuterol/Ipratropium (Duoneb 3 Mg/0.5 Mg (3 Ml) Ud) 3 ml INH RQ4 PRN PRN Reason: Wheezing Last Admin: 07/22/18 19:34 Dose: 3 ml Dextrose (Dextrose 50% Inj) 0 ml IV STAT PRN; Protocol PRN Reason: Hypoglycemia Protocol Dextrose (Glutose 15) 0 gm PO ONCE PRN; Protocol PRN Reason: Hypoglycemia Protocol Glucagon (Glucagen Diagnostic Kit) 0 mg IM STAT PRN; Protocol PRN Reason: Hypoglycemia Protocol Heparin Sodium (Porcine) (Heparin) 5,000 units SC Q8 [facility] Last Admin: 07/23/18 05:31 Dose: 5,000 units Dextrose (Dextrose 5% In Water 1000 Ml) 1,000 mls @ 0 mls/hr IV .Q0M PRN; Protocol PRN Reason: Hypoglycemia Protocol Insulin Human Regular (Novolin R) 0 unit SC ACHS [facility]; Protocol Last Admin: 07/23/18 08:00 Dose: 6 units Methylprednisolone (Solu-Medrol) 40 mg IV Q12 [facility] Last Admin: 07/23/18 09:14 Dose: 40 mg Nicotine (Nicoderm Cq) 1 patch TD DAILY [facility] Last Admin: 07/23/18 09:16 Dose: 1 patch Pantoprazole Sodium (Protonix Inj) 40 mg IVP DAILY [facility] Last Admin: 07/23/18 09:15 Dose: 40 mg Rosuvastatin Calcium (Crestor) 5 mg PO HS [facility] Last Admin: 07/22/18 22:17 Dose: 5 mg - Labs Labs: 07/22/18 17:57 07/22/18 17:57 PT 11.5 SECONDS (9.7-12.2) 07/21/18 17:22 INR 1.1 07/21/18 17:22 APTT 29 SECONDS (21-34) 07/21/18 17:22 - Head Exam Head Exam: ATRAUMATIC, NORMOCEPHALIC - Eye Exam Eye Exam: Normal appearance - ENT Exam ENT Exam: Mucous Membranes Moist - Neck Exam Neck Exam: Normal Inspection - Respiratory Exam Respiratory Exam: Rhonchi, Wheezes - Cardiovascular Exam Cardiovascular Exam: REGULAR RHYTHM - GI/Abdominal Exam GI & Abdominal Exam: Soft, Normal Bowel Sounds Assessment and Plan (1) COPD (chronic obstructive pulmonary disease) Assessment & Plan: Continue nebulizer treatment and start tapering steroids Continue present treatment Patient advised to quit smoking Nicotine patch Status: Acute (2) Bronchitis Status: Acute
[2018-07-23] MEDS: Albuterol-Ipratrop 3 mg / 0.5 (3 ml) UD INH PRN (13:20)
--- NOTE | 2018-07-23 19:18 | CARD ---
APPROVED REPORT Date of service: 07/21/2018 EKG Measurement Heart [id number] <Conclusion> Sinus tachycardia ST & T wave abnormality, consider inferior ischemia Abnormal ECG
--- NOTE | 2018-07-23 19:31 | CP.PCM.PN ---
Subjective - Date & Time of Evaluation Date of Evaluation: 07/23/18 Time of Evaluation: 11:00 - Subjective Subjective: PGY-1 Medicine Progress Note for Dr. Gupta's service Patient seen and examined at bedside. Offers 0 complaints. Denies fevers, chills, chest pain, sob, n/v, constipation or diarrhea, and dysuria. Objective - Vital Signs/Intake and Output Vital Signs (last 24 hours): Temp Pulse Resp BP Pulse Ox 97.7 F 80 20 113/75 95 07/23/18 15:00 07/23/18 15:00 07/23/18 15:00 07/23/18 15:00 07/23/18 08:00 - Medications Medications: Current Medications Albuterol/Ipratropium (Duoneb 3 Mg/0.5 Mg (3 Ml) Ud) 3 ml INH RQ4 PRN PRN Reason: Wheezing Last Admin: 07/23/18 13:20 Dose: 3 ml Dextrose (Dextrose 50% Inj) 0 ml IV STAT PRN; Protocol PRN Reason: Hypoglycemia Protocol Dextrose (Glutose 15) 0 gm PO ONCE PRN; Protocol PRN Reason: Hypoglycemia Protocol Glucagon (Glucagen Diagnostic Kit) 0 mg IM STAT PRN; Protocol PRN Reason: Hypoglycemia Protocol Heparin Sodium (Porcine) (Heparin) 5,000 units SC Q8 [facility] Last Admin: 07/23/18 13:42 Dose: 5,000 units Dextrose (Dextrose 5% In Water 1000 Ml) 1,000 mls @ 0 mls/hr IV .Q0M PRN; Protocol PRN Reason: Hypoglycemia Protocol Insulin Human Regular (Novolin R) 0 unit SC ACHS [facility]; Protocol Last Admin: 07/23/18 16:50 Dose: 10 units Methylprednisolone (Solu-Medrol) 40 mg IV Q12 [facility] Last Admin: 07/23/18 09:14 Dose: 40 mg Nicotine (Nicoderm Cq) 1 patch TD DAILY [facility] Last Admin: 07/23/18 09:16 Dose: 1 patch Pantoprazole Sodium (Protonix Inj) 40 mg IVP DAILY [facility] Last Admin: 07/23/18 09:15 Dose: 40 mg Rosuvastatin Calcium (Crestor) 5 mg PO HS [facility] Last Admin: 07/22/18 22:17 Dose: 5 mg - Labs Labs: 07/22/18 17:57 07/22/18 17:57 PT 11.5 SECONDS (9.7-12.2) 07/21/18 17:22 INR 1.1 07/21/18 17:22 APTT 29 SECONDS (21-34) 07/21/18 17:22 - Constitutional Appears: Non-toxic, No Acute Distress - Head Exam Head Exam: NORMAL INSPECTION, NORMOCEPHALIC - Eye Exam Eye Exam: EOMI, Normal appearance. absent: Nystagmus, Scleral icterus - ENT Exam ENT Exam: Mucous Membranes Moist - Respiratory Exam Respiratory Exam: Wheezes, NORMAL BREATHING PATTERN. absent: Rales, Rhonchi, Respiratory Distress - Cardiovascular Exam Cardiovascular Exam: REGULAR RHYTHM, +S1, +S2. absent: Tachycardia - GI/Abdominal Exam GI & Abdominal Exam: Soft, Normal Bowel Sounds. absent: Distended, Firm, Guarding, Tenderness - Extremities Exam Extremities Exam: Normal Inspection. absent: Calf Tenderness, Pedal Edema - Neurological Exam Neurological Exam: Alert, Awake, Oriented x3 - Psychiatric Exam Psychiatric exam: Normal Affect, Normal Mood - Skin Skin Exam: Intact, Normal Color Assessment and Plan - Assessment and Plan (Free Text) Assessment: Acute asthma exacerbation pulmonology consult, Dr. Yolanda narayanan appreciated telemetry discontinued; no indication nebulizer, duonebs-change from scheduled to q4h prn IV steroids, solu-medrol 40mg IV q12h O2 NC, 2L prn f/u sputum cx DM2 hold home metformin accuchecks asc hypoglycemia protocol ISS achs consider long agent if sugars remain elevated HTN denies current medication use continue to monitor, BP stable and WNL Schizophrenia patient denies, no recorded medication, stable at this time Ppx GI ppx: protonix w/ IV steroids VTE ppx: heparin [address] Alonso Poe, PGY-1
--- NOTE | 2018-07-24 03:51 | CP.PCM.PN ---
Subjective - Date & Time of Evaluation Date of Evaluation: 07/24/18 Time of Evaluation: 03:50 - Subjective Subjective: Medicine Progress Note Patient seen and examined at bedside. Patient states he feels much better than when he was in the ED. Patient said he can "use more breathing treatments" as they have been helping him breathe better. Reports decreased cough, wheeze, and congestion. Objective - Vital Signs/Intake and Output Vital Signs (last 24 hours): Temp Pulse Resp BP Pulse Ox 98.2 F 79 20 130/76 94 L 07/23/18 23:45 07/23/18 23:45 07/23/18 23:45 07/23/18 23:45 07/23/18 23:45 Intake and Output: 07/23/18 07/24/18 18:59 06:59 Output Total 200 Balance -200 - Medications Medications: Current Medications Albuterol/Ipratropium (Duoneb 3 Mg/0.5 Mg (3 Ml) Ud) 3 ml INH RQ4 PRN PRN Reason: Wheezing Last Admin: 07/23/18 13:20 Dose: 3 ml Dextrose (Dextrose 50% Inj) 0 ml IV STAT PRN; Protocol PRN Reason: Hypoglycemia Protocol Dextrose (Glutose 15) 0 gm PO ONCE PRN; Protocol PRN Reason: Hypoglycemia Protocol Glucagon (Glucagen Diagnostic Kit) 0 mg IM STAT PRN; Protocol PRN Reason: Hypoglycemia Protocol Heparin Sodium (Porcine) (Heparin) 5,000 units SC Q8 [facility] Last Admin: 07/23/18 21:48 Dose: 5,000 units Dextrose (Dextrose 5% In Water 1000 Ml) 1,000 mls @ 0 mls/hr IV .Q0M PRN; Protocol PRN Reason: Hypoglycemia Protocol Insulin Human Regular (Novolin R) 0 unit SC ACHS [facility]; Protocol Last Admin: 07/23/18 21:49 Dose: 2 units Methylprednisolone (Solu-Medrol) 40 mg IV Q12 [facility] Last Admin: 07/23/18 21:49 Dose: 40 mg Nicotine (Nicoderm Cq) 1 patch TD DAILY [facility] Last Admin: 07/23/18 09:16 Dose: 1 patch Pantoprazole Sodium (Protonix Inj) 40 mg IVP DAILY [facility] Last Admin: 07/23/18 09:15 Dose: 40 mg Rosuvastatin Calcium (Crestor) 5 mg PO HS [facility] Last Admin: 07/23/18 21:48 Dose: 5 mg - Labs Labs: 07/22/18 17:57 07/22/18 17:57 PT 11.5 SECONDS (9.7-12.2) 07/21/18 17:22 INR 1.1 07/21/18 17:22 APTT 29 SECONDS (21-34) 07/21/18 17:22 - Constitutional Appears: Well, Non-toxic - Head Exam Head Exam: ATRAUMATIC, NORMAL INSPECTION, NORMOCEPHALIC - Eye Exam Eye Exam: Normal appearance - Neck Exam Neck Exam: Normal Inspection - Respiratory Exam Respiratory Exam: Decreased Breath Sounds, NORMAL BREATHING PATTERN - Cardiovascular Exam Cardiovascular Exam: REGULAR RHYTHM - GI/Abdominal Exam GI & Abdominal Exam: Soft, Normal Bowel Sounds - Extremities Exam Extremities Exam: absent: Calf Tenderness - Neurological Exam Neurological Exam: Alert, Awake - Psychiatric Exam Psychiatric exam: Normal Affect, Normal Mood - Skin Skin Exam: Dry, Intact, Normal Color, Warm Assessment and Plan - Assessment and Plan (Free Text) Assessment: 62 y/o male with asthma, COPD, tobacco abuse, HTN and homelessness. Acute asthma exacerbation pulmonology consult, Dr. Yolanda narayanan appreciated telemetry discontinued; no indication nebulizer, duonebs-change from scheduled to q4h prn IV steroids, solu-medrol 40mg IV q12h O2 NC, 2L prn f/u sputum cx DM2 hold home metformin accuchecks asc hypoglycemia protocol ISS achs consider long agent if sugars remain elevated HTN denies current medication use continue to monitor, BP stable and WNL Schizophrenia patient denies, no recorded medication, stable at this time Ppx GI ppx: protonix 40 mg IV VTE ppx: heparin 5000 q8
[2018-07-24 08:23] LABS: BASO % 0.2 % (0.0-2.0); HEMOGLOBIN 13.8 g/dL (12.0-18.0); LYMPH # 1.7 K/uL (1.0-4.3); MEAN CORPUSCULAR HEMOGLOBIN 30.1 pg (27.0-31.0); MEAN PLATELET VOLUME 9.6 fL (7.2-11.7); MONO # 0.8 K/uL (0.0-0.8); MONO % 5.6 % (0.0-10.0); NEUT # 12.5 K/uL (1.8-7.0); NEUT % 83.2 % (50.0-75.0); NRBC % 0.1 % (0.0-2.0); RBC 4.59 Mil/uL (4.40-5.90); RED CELL DISTRIBUTION WIDTH 13.8 % (11.5-14.5)
[2018-07-24 08:40] LABS: ALB/GLOB RATIO 1.4 (1.0-2.1); ALT/SGPT 30 U/L (21-72); AST/SGOT 20 U/L (17-59); BLOOD UREA NITROGEN 27 mg/dL (9-20); CALCIUM 8.7 mg/dl (8.6-10.4); GFR NON-AFRICAN AMERICAN 56
[2018-07-24] MEDS: Albuterol-Ipratrop 3 mg / 0.5 (3 ml) UD INH PRN ×2 (08:43→11:28)
[2018-07-24] MEDS: (Novolin R) Insulin Human Regular 100 units/ml vial SC SCH ×4 (08:43→21:23)
[2018-07-24] MEDS: MethylPREDNISolone 40 mg Vial IV SCH ×2 (09:31→21:42)
--- NOTE | 2018-07-24 11:39 | CP.PCM.PN ---
Subjective - Date & Time of Evaluation Date of Evaluation: 07/24/18 Time of Evaluation: 11:30 - Subjective Subjective: Pulmonary Folow up, Covering Dr Amanda The Patient was seen and examined at the bedside, Medical records reviewed, and management issues were discussed and formulated with the house staff. Events reviewed Ms. Ibanez is 62 Y/O M with PMHx of asthmaCOPD overlap syndrome (ACOS) Who presented to the ED 07/21 evening with complaints of wheezing and SOB that began yesterday morning. Pt is homeless, he has been unable to obtain his inhalers and spends many hours outside in the cold weather H/O multiple admission and ER visits for breathing difficulties in the past He was started on IV Steroids, DuoNeb and Nicotine Patch Methylprednisolone 40 mg IV Q12 Duoneb INH RQ4 PRN Nicotine (Nicoderm Cq) 1 patch TD DAILY He is doing better today Respiratory status has improved since admission Improved dyspnea Denies fever chills, denies chest pain. Afebrile Saturation is 95% on room air Objective - Vital Signs/Intake and Output Vital Signs (last 24 hours): Temp Pulse Resp BP Pulse Ox 98.3 F 90 20 142/84 94 L 07/24/18 07:51 07/24/18 07:51 07/24/18 07:51 07/24/18 07:51 07/24/18 09:11 Intake and Output: 07/24/18 07/24/18 06:59 18:59 Output Total 200 Balance -200 - Medications Medications: Current Medications Albuterol/Ipratropium (Duoneb 3 Mg/0.5 Mg (3 Ml) Ud) 3 ml INH RQ4 PRN PRN Reason: Wheezing Last Admin: 07/24/18 11:28 Dose: 3 ml Dextrose (Dextrose 50% Inj) 0 ml IV STAT PRN; Protocol PRN Reason: Hypoglycemia Protocol Dextrose (Glutose 15) 0 gm PO ONCE PRN; Protocol PRN Reason: Hypoglycemia Protocol Glucagon (Glucagen Diagnostic Kit) 0 mg IM STAT PRN; Protocol PRN Reason: Hypoglycemia Protocol Heparin Sodium (Porcine) (Heparin) 5,000 units SC Q8 [facility] Last Admin: 07/24/18 06:33 Dose: Not Given Dextrose (Dextrose 5% In Water 1000 Ml) 1,000 mls @ 0 mls/hr IV .Q0M PRN; Protocol PRN Reason: Hypoglycemia Protocol Insulin Human Regular (Novolin R) 0 unit SC ACHS [facility]; Protocol Last Admin: 07/24/18 08:43 Dose: 8 units Methylprednisolone (Solu-Medrol) 40 mg IV Q12 [facility] Last Admin: 07/24/18 09:31 Dose: 40 mg Nicotine (Nicoderm Cq) 1 patch TD DAILY [facility] Last Admin: 07/24/18 09:35 Dose: 1 patch Pantoprazole Sodium (Protonix Inj) 40 mg IVP DAILY [facility] Last Admin: 07/24/18 09:31 Dose: 40 mg Rosuvastatin Calcium (Crestor) 5 mg PO HS [facility] Last Admin: 07/23/18 21:48 Dose: 5 mg - Labs Labs: 07/24/18 07:56 07/24/18 07:56 PT 11.5 SECONDS (9.7-12.2) 07/21/18 17:22 INR 1.1 07/21/18 17:22 APTT 29 SECONDS (21-34) 07/21/18 17:22
[2018-07-25] MEDS ORDERED: Albuterol-Ipratrop 3 mg / 0.5 (3 ml) UD INH STA (06:19)
[2018-07-25] MEDS: Albuterol-Ipratrop 3 mg / 0.5 (3 ml) UD INH PRN (06:37)
[2018-07-25] MEDS: (Novolin R) Insulin Human Regular 100 units/ml vial SC SCH ×4 (07:58→21:29)
[2018-07-25] MEDS: MethylPREDNISolone 40 mg Vial IV SCH ×2 (09:46→21:29)
[2018-07-25 11:09] LABS: BASO # 0.1 K/uL (0.0-0.2); BASO % 0.4 % (0.0-2.0); HEMOGLOBIN 13.5 g/dL (12.0-18.0); LYMPH # 2.2 K/uL (1.0-4.3); LYMPH % 15.2 % (20.0-40.0); MEAN CELL VOLUME 90.7 fL (80.0-94.0); MEAN CORPUSCULAR HEMOGLOBIN 29.9 pg (27.0-31.0); MEAN PLATELET VOLUME 9.4 fL (7.2-11.7); MONO # 1.5 K/uL (0.0-0.8); MONO % 10.4 % (0.0-10.0); NEUT # 10.8 K/uL (1.8-7.0); NRBC % 0.1 % (0.0-2.0); RBC 4.5 Mil/uL (4.40-5.90); RED CELL DISTRIBUTION WIDTH 13.7 % (11.5-14.5); WHITE BLOOD COUNT 14.6 K/uL (4.8-10.8)
[2018-07-25 11:43] LABS: ALB/GLOB RATIO 1.4 (1.0-2.1); ALT/SGPT 30 U/L (21-72); AST/SGOT 21 U/L (17-59); BLOOD UREA NITROGEN 26 mg/dL (9-20); CALCIUM 8.7 mg/dl (8.6-10.4); GFR NON-AFRICAN AMERICAN > 60
--- NOTE | 2018-07-25 12:24 | CP.PCM.PN ---
Subjective - Date & Time of Evaluation Date of Evaluation: 07/25/18 Time of Evaluation: 20:00 - Subjective Subjective: Patient examined at bedside. No acute events overnight. Patient reports he feels well and denies complaint at this time including SOB, chest pain, nausea, diarrhea. Objective - Vital Signs/Intake and Output Vital Signs (last 24 hours): Temp Pulse Resp BP Pulse Ox 98.8 F 80 20 122/71 96 07/25/18 07:00 07/25/18 07:00 07/25/18 07:00 07/25/18 07:00 07/25/18 07:00 - Medications Medications: Current Medications Albuterol/Ipratropium (Duoneb 3 Mg/0.5 Mg (3 Ml) Ud) 3 ml INH RQ4 PRN PRN Reason: Wheezing Last Admin: 07/25/18 06:37 Dose: 3 ml Dextrose (Dextrose 50% Inj) 0 ml IV STAT PRN; Protocol PRN Reason: Hypoglycemia Protocol Dextrose (Glutose 15) 0 gm PO ONCE PRN; Protocol PRN Reason: Hypoglycemia Protocol Glucagon (Glucagen Diagnostic Kit) 0 mg IM STAT PRN; Protocol PRN Reason: Hypoglycemia Protocol Heparin Sodium (Porcine) (Heparin) 5,000 units SC Q8 [facility] Last Admin: 07/25/18 06:12 Dose: Not Given Insulin Human Regular (Novolin R) 0 unit SC ACHS [facility]; Protocol Last Admin: 07/25/18 07:58 Dose: 6 units Methylprednisolone (Solu-Medrol) 40 mg IV Q12 [facility] Last Admin: 07/25/18 09:46 Dose: 40 mg Nicotine (Nicoderm Cq) 1 patch TD DAILY [facility] Last Admin: 07/25/18 09:46 Dose: 1 patch Pantoprazole Sodium (Protonix Inj) 40 mg IVP DAILY [facility] Last Admin: 07/25/18 09:46 Dose: 40 mg Rosuvastatin Calcium (Crestor) 5 mg PO HS [facility] Last Admin: 07/24/18 21:42 Dose: 5 mg - Labs Labs: 07/25/18 11:02 07/25/18 11:02 PT 11.5 SECONDS (9.7-12.2) 07/21/18 17:22 INR 1.1 07/21/18 17:22 APTT 29 SECONDS (21-34) 07/21/18 17:22 - Additional Findings Additional findings: - Constitutional Appears: Non-toxic, No Acute Distress - Head Exam Head Exam: NORMAL INSPECTION, NORMOCEPHALIC - Eye Exam Eye Exam: EOMI, Normal appearance. absent: Nystagmus, Scleral icterus - ENT Exam ENT Exam: Mucous Membranes Moist - Respiratory Exam Respiratory Exam: Wheezes, NORMAL BREATHING PATTERN. absent: Rales, Rhonchi, Respiratory Distress - Cardiovascular Exam Cardiovascular Exam: REGULAR RHYTHM, +S1, +S2. absent: Tachycardia - GI/Abdominal Exam GI & Abdominal Exam: Soft, Normal Bowel Sounds. absent: Distended, Firm, Guarding, Tenderness - Extremities Exam Extremities Exam: Normal Inspection. absent: Calf Tenderness, Pedal Edema - Neurological Exam Neurological Exam: Alert, Awake, Oriented x3 - Psychiatric Exam Psychiatric exam: Normal Affect, Normal Mood - Skin Skin Exam: Intact, Normal Color Assessment and Plan - Assessment and Plan (Free Text) Assessment: 62 year old male with pmhx of asthma, COPD, DM2, HTN and schizophrenia(per notes) admitted for treatment of acute asthma exacerbation Plan: Acute asthma exacerbation -nebulizer, duonebs q4h prn -IV steroids, solu-medrol 40mg IV q12h -O2 NC, 2L prn -sputum cx negative -pulmonology consult, Dr. Amanda DM2 -hold home metformin -accuchecks achs -hypoglycemia protocol -ISS achs HTN -denies current medication use -continue to monitor, BP stable and WNL Schizophrenia -patient denies, no recorded medication, stable at this time Ppx -GI ppx: protonix w/ IV steroids -VTE ppx: heparin 5000 q8 -nicotine patch Discussed with Dr. Alonso Sheffield, PGY-1
--- NOTE | 2018-07-25 14:27 | CP.PCM.PN ---
Subjective - Date & Time of Evaluation Date of Evaluation: 07/25/18 Time of Evaluation: 09:00 - Subjective Subjective: Mr Ibanez was seen and examined at bedside this morning. Resting comfortably in bed in no acute distress. No acute events noted overnight. Patient states that his breathing does feel improved overall since beginning the treatments, but that he is still occasionally wheezing. Currently denies any fever, chills, chest pain, n/v. No other complaints noted at this time. Exam: Gen: No acute distress. AAOx3 HEENT: Moist mucosa. Card: RRRR. Lungs: Symmetric chest excursions. No tachypnea or respiratory distress noted. (+) Expiratory wheezing heard in all lung turk, with frequent coughing noted during auscultation. Abd: Soft, non-distended. Normal bowel sounds. No tenderness to palpation. A&P 1. Asthma/COPD - Continue with current management of Duonebs and IV solu-medrol - Cultures negative to date Objective - Vital Signs/Intake and Output Vital Signs (last 24 hours): Temp Pulse Resp BP Pulse Ox 98.8 F 80 20 122/71 96 07/25/18 07:00 07/25/18 07:00 07/25/18 07:00 07/25/18 07:00 07/25/18 07:00 - Medications Medications: Current Medications Albuterol/Ipratropium (Duoneb 3 Mg/0.5 Mg (3 Ml) Ud) 3 ml INH RQ4 PRN PRN Reason: Wheezing Last Admin: 07/25/18 06:37 Dose: 3 ml Dextrose (Dextrose 50% Inj) 0 ml IV STAT PRN; Protocol PRN Reason: Hypoglycemia Protocol Dextrose (Glutose 15) 0 gm PO ONCE PRN; Protocol PRN Reason: Hypoglycemia Protocol Glucagon (Glucagen Diagnostic Kit) 0 mg IM STAT PRN; Protocol PRN Reason: Hypoglycemia Protocol Heparin Sodium (Porcine) (Heparin) 5,000 units SC Q8 [facility] Last Admin: 07/25/18 14:08 Dose: Not Given Insulin Human Regular (Novolin R) 0 unit SC ACHS [facility]; Protocol Last Admin: 07/25/18 12:23 Dose: 6 units Methylprednisolone (Solu-Medrol) 40 mg IV Q12 [facility] Last Admin: 07/25/18 09:46 Dose: 40 mg Nicotine (Nicoderm Cq) 1 patch TD DAILY [facility] Last Admin: 07/25/18 09:46 Dose: 1 patch Pantoprazole Sodium (Protonix Inj) 40 mg IVP DAILY [facility] Last Admin: 07/25/18 09:46 Dose: 40 mg Rosuvastatin Calcium (Crestor) 5 mg PO HS [facility] Last Admin: 07/24/18 21:42 Dose: 5 mg - Labs Labs: 07/25/18 11:02 07/25/18 11:02 PT 11.5 SECONDS (9.7-12.2) 07/21/18 17:22 INR 1.1 07/21/18 17:22 APTT 29 SECONDS (21-34) 07/21/18 17:22 Assessment and Plan (1) COPD (chronic obstructive pulmonary disease) Status: Acute (2) Bronchitis Status: Acute
[2018-07-26] MEDS: Albuterol-Ipratrop 3 mg / 0.5 (3 ml) UD INH PRN ×2 (07:56→11:21)
[2018-07-26] MEDS: (Novolin R) Insulin Human Regular 100 units/ml vial SC SCH ×4 (07:58→21:40)
[2018-07-26] MEDS: Pantoprazole 40 mg EC Tab PO SCH (09:26)
[2018-07-26] MEDS: MethylPREDNISolone 40 mg Vial IV SCH ×2 (09:26→21:43)
[2018-07-26 11:13] LABS: BASO % 0.2 % (0.0-2.0); HEMOGLOBIN 14.3 g/dL (12.0-18.0); LYMPH # 3.2 K/uL (1.0-4.3); LYMPH % 18.8 % (20.0-40.0); MEAN CORPUSCULAR HEMOGLOBIN 29.4 pg (27.0-31.0); MEAN CORPUSCULAR HGB CONC 32.3 g/dL (33.0-37.0); MEAN PLATELET VOLUME 9.2 fL (7.2-11.7); MONO # 1.6 K/uL (0.0-0.8); MONO % 9.8 % (0.0-10.0); NEUT # 11.9 K/uL (1.8-7.0); NEUT % 71.2 % (50.0-75.0); RBC 4.87 Mil/uL (4.40-5.90); RED CELL DISTRIBUTION WIDTH 14.1 % (11.5-14.5); WHITE BLOOD COUNT 16.8 K/uL (4.8-10.8)
[2018-07-26 11:56] LABS: ALB/GLOB RATIO 1.3 (1.0-2.1); ALBUMIN 3.8 g/dL (3.5-5.0); ALT/SGPT 31 U/L (21-72); AST/SGOT 35 U/L (17-59); BLOOD UREA NITROGEN 37 mg/dL (9-20); CALCIUM 8.8 mg/dl (8.6-10.4); GFR NON-AFRICAN AMERICAN 56
--- NOTE | 2018-07-26 14:51 | CP.PCM.PN ---
Subjective - Date & Time of Evaluation Date of Evaluation: 07/26/18 Time of Evaluation: 14:46 - Subjective Subjective: PGY-1 Medicine Progress Note for Dr. Gupta's service Patient s/e at bedside. Stated he needed breathing treatment for his sob. Denies fevers, chills, chest pain, sob, n/v, constipation or diarrhea, and dysuria. Objective - Vital Signs/Intake and Output Vital Signs (last 24 hours): Temp Pulse Resp BP Pulse Ox 98.0 F 74 20 118/69 95 07/26/18 07:00 07/26/18 07:00 07/26/18 07:00 07/26/18 07:00 07/26/18 07:00 Intake and Output: 07/26/18 07/26/18 06:59 18:59 Intake Total 400 Balance 400 - Medications Medications: Current Medications Albuterol/Ipratropium (Duoneb 3 Mg/0.5 Mg (3 Ml) Ud) 3 ml INH RQ4 PRN PRN Reason: Wheezing Last Admin: 07/26/18 11:21 Dose: 3 ml Dextrose (Dextrose 50% Inj) 0 ml IV STAT PRN; Protocol PRN Reason: Hypoglycemia Protocol Dextrose (Glutose 15) 0 gm PO ONCE PRN; Protocol PRN Reason: Hypoglycemia Protocol Glucagon (Glucagen Diagnostic Kit) 0 mg IM STAT PRN; Protocol PRN Reason: Hypoglycemia Protocol Heparin Sodium (Porcine) (Heparin) 5,000 units SC Q8 [facility] Last Admin: 07/26/18 13:04 Dose: Not Given Insulin Human Regular (Novolin R) 0 unit SC ACHS [facility]; Protocol Last Admin: 07/26/18 11:52 Dose: 10 units Methylprednisolone (Solu-Medrol) 40 mg IV Q12 [facility] Last Admin: 07/26/18 09:26 Dose: 40 mg Nicotine (Nicoderm Cq) 1 patch TD DAILY [facility] Last Admin: 07/26/18 09:26 Dose: 1 patch Pantoprazole Sodium (Protonix Ec Tab) 40 mg PO DAILY [facility] Last Admin: 07/26/18 09:26 Dose: 40 mg Rosuvastatin Calcium (Crestor) 5 mg PO HS [facility] Last Admin: 07/25/18 21:29 Dose: 5 mg - Labs Labs: 07/26/18 11:04 07/26/18 11:04 PT 11.5 SECONDS (9.7-12.2) 07/21/18 17:22 INR 1.1 07/21/18 17:22 APTT 29 SECONDS (21-34) 07/21/18 17:22 - Additional Findings Additional findings: - Constitutional Appears: Non-toxic, No Acute Distress - Head Exam Head Exam: NORMAL INSPECTION, NORMOCEPHALIC - Eye Exam Eye Exam: EOMI, Normal appearance. absent: Nystagmus, Scleral icterus - ENT Exam ENT Exam: Mucous Membranes Moist - Respiratory Exam Respiratory Exam: Wheezes, NORMAL BREATHING PATTERN. absent: Rales, Rhonchi, Respiratory Distress - Cardiovascular Exam Cardiovascular Exam: REGULAR RHYTHM, +S1, +S2. absent: Tachycardia - GI/Abdominal Exam GI & Abdominal Exam: Soft, Normal Bowel Sounds. absent: Distended, Firm, Guarding, Tenderness - Extremities Exam Extremities Exam: Normal Inspection. absent: Calf Tenderness, Pedal Edema - Neurological Exam Neurological Exam: Alert, Awake, Oriented x3 - Psychiatric Exam Psychiatric exam: Normal Affect, Normal Mood - Skin Skin Exam: Intact, Normal Color Assessment and Plan - Assessment and Plan (Free Text) Assessment: 62 year old male with pmhx of asthma, COPD, DM2, HTN and schizophrenia(per notes) admitted for treatment of acute asthma exacerbation Acute asthma exacerbation Pulmonology consult, Dr. Amanda nebulizer, duonebs q4h prn IV steroids, solu-medrol 40mg IV q12h O2 NC, 2L prn sputum cx negative DM2 hold home metformin accuchecks achs hypoglycemia protocol ISS achs HTN denies current medication use continue to monitor, BP stable and WNL Schizophrenia patient denies, no recorded medication, stable at this time PPX GI ppx: protonix w/ IV steroids VTE ppx: heparin 5000 q8 nicotine patch Discussed with Dr. Alonso Poe, PGY-1
--- NOTE | 2018-07-26 16:11 | CP.PCM.PN ---
Subjective - Date & Time of Evaluation Date of Evaluation: 07/26/18 Time of Evaluation: 11:50 - Subjective Subjective: Mr. Ibanez was seen and examined at bedside this morning. He is resting comfortably in bed in no acute distress. No acute events noted overnight. He reports that he is feeling better and that his breathing has improved since yesterday. WHeezing. Currently denies any fever, chills, chest pain, n/v. No other complaints noted at this time. Exam: Gen: No acute distress. AAOx3 HEENT: Moist mucosa. Card: RRRR. Lungs: Symmetric chest excursions. No tachypnea or respiratory distress noted. (+) Mild expiratory wheezing heard in mid and lower lung field bilaterally, improved since yesterday Abd: Soft, non-distended. Normal bowel sounds. No tenderness to palpation. A&P 1. Asthma/COPD - Continue with current management of Duonebs and switch to po steroids - Cultures negative to date - Patient states that he feels much better and would feel ready to go home tomorrow - Please provide patient with prescriptions for albuterol and corticosteroid inhaler upon discharge Objective - Vital Signs/Intake and Output Vital Signs (last 24 hours): Temp Pulse Resp BP Pulse Ox 98.0 F 74 20 118/69 95 07/26/18 07:00 07/26/18 07:00 07/26/18 07:00 07/26/18 07:00 07/26/18 07:00 Intake and Output: 07/26/18 07/26/18 06:59 18:59 Intake Total 400 Balance 400 - Medications Medications: Current Medications Albuterol/Ipratropium (Duoneb 3 Mg/0.5 Mg (3 Ml) Ud) 3 ml INH RQ4 PRN PRN Reason: Wheezing Last Admin: 07/26/18 11:21 Dose: 3 ml Dextrose (Dextrose 50% Inj) 0 ml IV STAT PRN; Protocol PRN Reason: Hypoglycemia Protocol Dextrose (Glutose 15) 0 gm PO ONCE PRN; Protocol PRN Reason: Hypoglycemia Protocol Glucagon (Glucagen Diagnostic Kit) 0 mg IM STAT PRN; Protocol PRN Reason: Hypoglycemia Protocol Heparin Sodium (Porcine) (Heparin) 5,000 units SC Q8 [facility] Last Admin: 07/26/18 13:04 Dose: Not Given Insulin Human Regular (Novolin R) 0 unit SC ACHS [facility]; Protocol Last Admin: 07/26/18 11:52 Dose: 10 units Methylprednisolone (Solu-Medrol) 40 mg IV Q12 [facility] Last Admin: 07/26/18 09:26 Dose: 40 mg Nicotine (Nicoderm Cq) 1 patch TD DAILY [facility] Last Admin: 07/26/18 09:26 Dose: 1 patch Pantoprazole Sodium (Protonix Ec Tab) 40 mg PO DAILY [facility] Last Admin: 07/26/18 09:26 Dose: 40 mg Rosuvastatin Calcium (Crestor) 5 mg PO HS [facility] Last Admin: 07/25/18 21:29 Dose: 5 mg - Labs Labs: 07/26/18 11:04 07/26/18 11:04 PT 11.5 SECONDS (9.7-12.2) 07/21/18 17:22 INR 1.1 07/21/18 17:22 APTT 29 SECONDS (21-34) 07/21/18 17:22 Assessment and Plan (1) COPD (chronic obstructive pulmonary disease) Status: Acute (2) Bronchitis Status: Acute
[2018-07-27 05:58] VITALS: RESP 20
[2018-07-27 07:21] VITALS: BP 143/90; PULSE 82; TEMP 97.9; O2SAT 96
[2018-07-27] MEDS ORDERED: Calcium Carbonate 500 mg Chewable Antacid Tab PO ONE (07:27)
[2018-07-27 07:31] LABS: BASO # 0.1 K/uL (0.0-0.2); BASO % 0.5 % (0.0-2.0); HEMOGLOBIN 14.6 g/dL (12.0-18.0); LYMPH # 2.7 K/uL (1.0-4.3); LYMPH % 13.6 % (20.0-40.0); MEAN CELL VOLUME 89.8 fL (80.0-94.0); MEAN CORPUSCULAR HEMOGLOBIN 29.7 pg (27.0-31.0); MEAN CORPUSCULAR HGB CONC 33.1 g/dL (33.0-37.0); MEAN PLATELET VOLUME 9.3 fL (7.2-11.7); MONO # 1.2 K/uL (0.0-0.8); MONO % 5.8 % (0.0-10.0); NEUT % 80.1 % (50.0-75.0); NRBC % 0.1 % (0.0-2.0); RBC 4.93 Mil/uL (4.40-5.90); RED CELL DISTRIBUTION WIDTH 13.5 % (11.5-14.5)
[2018-07-27] MEDS: Albuterol-Ipratrop 3 mg / 0.5 (3 ml) UD INH PRN ×2 (07:40→11:39)
[2018-07-27 07:46] LABS: ALB/GLOB RATIO 1.4 (1.0-2.1); ALBUMIN 4.2 g/dL (3.5-5.0); ALT/SGPT 35 U/L (21-72); AST/SGOT 20 U/L (17-59); BLOOD UREA NITROGEN 40 mg/dL (9-20); CALCIUM 9.3 mg/dl (8.6-10.4); GFR NON-AFRICAN AMERICAN 51
[2018-07-27] MEDS: (Novolin R) Insulin Human Regular 100 units/ml vial SC SCH ×2 (08:26→12:33)
[2018-07-27] MEDS: Pantoprazole 40 mg EC Tab PO SCH (10:41)
[2018-07-27] MEDS: MethylPREDNISolone 40 mg Vial IV SCH (10:41)
--- NOTE | 2018-07-27 12:28 | CP.PCM.DIS ---
Provider - Provider Date of Admission: 07/25/18 15:39 Attending physician: Bang Gupta Jr, MD Primary care physician: Dr. Gupta Consults: 07/22/18 11:39 Pulmonology Consult Routine Comment: Consulting Provider: William Amanda Consulting Physician: William Amanda Reason for Consult: Asthma exacerbation Time Spent in preparation of Discharge (in minutes): 29 Diagnosis - Discharge Diagnosis (1) Asthma attack Status: Acute Hospital Course - Lab Results Lab Results: Micro Results 07/21/18 22:00 Blood Blood Culture - Final NO GROWTH AFTER 5 DAYS 07/21/18 22:00 Blood Gram Stain - Final TEST NOT PERFORMED 07/21/18 22:30 Blood Blood Culture - Final NO GROWTH AFTER 5 DAYS 07/21/18 22:30 Blood Gram Stain - Final TEST NOT PERFORMED 07/23/18 14:20 Other: Please Indicate Mycobacterial Culture - Preliminary 07/22/18 14:35 Sputum Induced Gram Stain - Final 07/22/18 14:35 Sputum Induced Sputum Culture - Final NORMAL ORAL CRISS Most Recent Lab Values WBC 20.0 K/uL (4.8-10.8) H 07/27/18 07:23 RBC 4.93 Mil/uL (4.40-5.90) 07/27/18 07:23 Hgb 14.6 g/dL (12.0-18.0) 07/27/18 07:23 Hct 44.2 % (35.0-51.0) 07/27/18 07:23 MCV 89.8 fL (80.0-94.0) 07/27/18 07:23 MCH 29.7 pg (27.0-31.0) 07/27/18 07:23 MCHC 33.1 g/dL (33.0-37.0) 07/27/18 07:23 RDW 13.5 % (11.5-14.5) 07/27/18 07:23 Plt Count 331 K/uL (130-400) 07/27/18 07:23 MPV 9.3 fL (7.2-11.7) 07/27/18 07:23 Neut % (Auto) 80.1 % (50.0-75.0) H 07/27/18 07:23 Lymph % (Auto) 13.6 % (20.0-40.0) L 07/27/18 07:23 [place] % (Auto) 5.8 % (0.0-10.0) 07/27/18 07:23 Eos % (Auto) 0.0 % (0.0-4.0) 07/27/18 07:23 Baso % (Auto) 0.5 % (0.0-2.0) 07/27/18 07:23 Neut # (Auto) 16.0 K/uL (1.8-7.0) H 07/27/18 07:23 Lymph # (Auto) 2.7 K/uL (1.0-4.3) 07/27/18 07:23 [place] # (Auto) 1.2 K/uL (0.0-0.8) H 07/27/18 07:23 Eos # (Auto) 0.0 K/uL (0.0-0.7) 07/27/18 07:23 Baso # (Auto) 0.1 K/uL (0.0-0.2) 07/27/18 07:23 Neutrophils % (Manual) 85 % (50-75) H 07/22/18 17:57 Band Neutrophils % 1 % (0-2) 07/22/18 17:57 Lymphocytes % (Manual) 8 % (20-40) L 07/22/18 17:57 Monocytes % (Manual) 5 % (0-10) 07/22/18 17:57 Eosinophils % (Manual) 1 % (0-4) 07/22/18 17:57 Platelet Estimate Normal (NORMAL) 07/22/18 17:57 PT 11.5 SECONDS (9.7-12.2) 07/21/18 17:22 INR 1.1 07/21/18 17:22 APTT 29 SECONDS (21-34) 07/21/18 17:22 Puncture Site Lradial 07/21/18 19:45 pCO2 36 mm/Hg (35-45) 07/21/18 19:45 pO2 73 mm/Hg (80-100) L 07/21/18 19:45 HCO3 25.9 mmol/L (21-28) 07/21/18 19:45 ABG pH 7.45 (7.35-7.45) 07/21/18 19:45 ABG Total CO2 26.1 mmol/L (22-28) 07/21/18 19:45 ABG O2 Saturation 98.2 % (95-98) H 07/21/18 19:45 ABG Base Excess 1.3 mmol/L (-2.0-3.0) 07/21/18 19:45 Rohit Test Pos 07/21/18 19:45 ABG Potassium 4.3 mmol/L (3.6-5.2) 07/21/18 19:45 A-a O2 Difference 32.0 mm/Hg 07/21/18 19:45 Respiratory Index 0.4 07/21/18 19:45 Sodium 134.0 mmol/l (132-148) 07/21/18 19:45 Chloride 102.0 mmol/L (98-107) 07/21/18 19:45 Glucose 245 mg/dl (75-110) H 07/21/18 19:45 Lactate 1.5 mmol/L (0.7-2.1) 07/21/18 19:45 FiO2 21.0 % 07/21/18 19:45 Sodium 134 mmol/L (132-148) 07/27/18 07:23 Potassium 5.0 mmol/L (3.6-5.2) 07/27/18 07:23 Chloride 97 mmol/L (98-107) L 07/27/18 07:23 Carbon Dioxide 25 mmol/L (22-30) 07/27/18 07:23 Anion Gap 16 (10-20) 07/27/18 07:23 BUN 40 mg/dL (9-20) H 07/27/18 07:23 Creatinine 1.4 mg/dL (0.8-1.5) 07/27/18 07:23 Est GFR ( Amer) > 60 07/27/18 07:23 Est GFR (Non-Af Amer) 51 07/27/18 07:23 POC Glucose (mg/dL) 384 mg/dL (65-110) H 07/27/18 11:06 Random Glucose 346 mg/dL (75-110) H D 07/27/18 07:23 Calcium 9.3 mg/dl (8.6-10.4) 07/27/18 07:23 Phosphorus 4.8 mg/dL (2.5-4.5) H 07/27/18 07:23 Magnesium 2.3 mg/dL (1.6-2.3) 07/27/18 07:23 Total Bilirubin 0.4 mg/dL (0.2-1.3) 07/27/18 07:23 AST 20 U/L (17-59) 07/27/18 07:23 ALT 35 U/L (21-72) 07/27/18 07:23 Alkaline Phosphatase 61 U/L (38-126) 07/27/18 07:23 Troponin I < 0.0120 ng/mL (0.00-0.120) 07/21/18 17:22 NT-Pro-B Natriuret Pep 37.6 pg/mL (0-900) 07/21/18 17:22 Total Protein 7.1 g/dL (6.3-8.3) 07/27/18 07:23 Albumin 4.2 g/dL (3.5-5.0) 07/27/18 07:23 Globulin 2.9 gm/dL (2.2-3.9) 07/27/18 07:23 Albumin/Globulin Ratio 1.4 (1.0-2.1) 07/27/18 07:23 Triglycerides 106 mg/dL (0-149) 07/22/18 17:57 Cholesterol 217 mg/dL (0-199) H 07/22/18 17:57 LDL Cholesterol Direct 144 mg/dL (0-129) H 07/22/18 17:57 HDL Cholesterol 53 mg/dL (30-70) 07/22/18 17:57 Arterial Blood Potassium 4.3 mmol/L (3.6-5.2) 07/21/18 19:45 Urine Color Straw (YELLOW) 07/21/18 22:00 Urine Clarity Clear (Clear) 07/21/18 22:00 Urine pH 7.0 (5.0-8.0) 07/21/18 22:00 Ur Specific [place] 1.003 (1.003-1.030) 07/21/18 22:00 Urine Protein Negative mg/dL (NEGATIVE) 07/21/18 22:00 Urine Glucose (UA) 3+ mg/dL (Normal) H 07/21/18 22:00 Urine Ketones Negative mg/dL (NEGATIVE) 07/21/18 22:00 Urine Blood Negative (NEGATIVE) 07/21/18 22:00 Urine Nitrate Negative (NEGATIVE) 07/21/18 22:00 Urine Bilirubin Negative (NEGATIVE) 07/21/18 22:00 Urine Urobilinogen Normal mg/dL (0.2-1.0) 07/21/18 22:00 Ur Leukocyte Esterase Neg Daniel/uL (Negative) 07/21/18 22:00 Urine RBC (Auto) < 1 /hpf (0-3) 07/21/18 22:00 Hepatitis A IgM Ab Negative (NEGATIVE) 07/21/18 18:52 Hep Bs Antigen Negative (NEGATIVE) 07/21/18 18:52 Hep B Core IgM Ab Negative (NEGATIVE) 07/21/18 18:52 Hepatitis C Antibody Negative (NEGATIVE) 07/21/18 18:52 - Hospital Course Hospital Course: Patient presented to the Emergency Department for evaluation of shortness of breath and wheezing. Patient was noted to be tachycardic @ 116 with related EKG findings, tachypneic @ 23 with labile spO2 on room air. Pt was actively wheezing. Pt was given Duonebs and solu-medrol in ED along with bloodwork including cbc, cmp, cardiac enzymes and coags; all of which were unremarkable. Patient was admitted and treated for an acute asthma exacerbation with Duonebs treatments and solu-medrol. Patient was found to be hyperglycemic, most likely 2/2 steroids and treated with ISS. Patient is stable at time of discharge, to continue with medrol dose pack and ventolin inhaler as prescribed. HPI on admission: "62 y/o male with PMHx of COPD, asthma, psych d/o (per ED note), HTN and homelessness presents to ED w/ SOB, cough, and wheezing x 1 day. He came from a homeless longterm next to the [facility]. Patient is a poor historian due to speaking tangentially. He was complaining of the cold weather and no ventilation in longterm that might have triggered the symptoms. He states he "only smoked one cigarette all day" and needs his "pump" medication to feel better. Patient denies chest pain, nausea, vomiting, diarrhea, fever, chills, sweats, abdominal pain." Discharge Exam - Head Exam Head Exam: ATRAUMATIC, NORMAL INSPECTION, NORMOCEPHALIC - Eye Exam Eye Exam: EOMI, Normal appearance Pupil Exam: NORMAL ACCOMODATION - ENT Exam ENT Exam: Mucous Membranes Moist - Neck Exam Neck exam: Normal Inspection - Respiratory Exam Respiratory Exam: Wheezes, NORMAL BREATHING PATTERN. absent: Respiratory Distress - Cardiovascular Exam Cardiovascular Exam: REGULAR RHYTHM. absent: Tachycardia - GI/Abdominal Exam GI & Abdominal Exam: Normal Bowel Sounds, Soft, Unremarkable. absent: Tenderness - Extremities Exam Extremities exam: normal inspection - Neurological Exam Neurological exam: Alert, Normal Gait, Oriented x3 - Psychiatric Exam Psychiatric exam: Normal Affect, Normal Mood - Skin Skin Exam: Dry, Intact, Normal Color, Warm Discharge Plan - Discharge Medications Prescriptions: Albuterol Sulfate [Ventolin Hfa] 2 puff IH Q4 PRN #1 unit PRN Reason: wheeze Methylprednisolone [Medrol Dose Pack (21 tabs)] 4 mg PO DAILY #21 mg - Follow Up Plan Condition: STABLE Disposition: HOME/ ROUTINE Instructions: Heart Healthy Diet, Asthma, Adult (DC), Chest Pain (DC), Albuterol, Methylprednisolone Additional Instructions: Patient is stable for discharge home. Patient is to resume home medications as prescribed. Patient will also be given prescriptions for 2 medications to be filled. Patient is prescribed Ventolin, to be used as 2 pumps inhaled by mouth up to every 4 hours as needed for wheezing and shortness of breath. Patient is also prescribed a medrol dose pack to be taken as instructed on package. Take all medication to completion. Patient is also instructed to return to PMD, Dr. Gupta withing 2 weeks of discharge. Patient instructed to return to the Emergency Department with any worsening of symptoms Referrals: Bang Gupta Jr., MD [Medical Doctor] -
== END 2018-07-27 17:03 | disposition home or self-care (01) | DRG 191 ==
LOC: C.ER 16:15 → C.9E 17:57 → C.5S 19:07 → C.6T 07-24 22:27 → OBSVTOIN 07-25 15:39
PROVIDERS: ADMIT Internal Medicine; ATTEND Internal Medicine
DX: J44.1 Chronic obstructive pulmonary disease with (acute) exacerbation (principal); J45.901 Unspecified asthma with (acute) exacerbation; D72.829 Elevated white blood cell count, unspecified; E11.65 Type 2 diabetes mellitus with hyperglycemia; Z79.84 Long term (current) use of oral hypoglycemic drugs; E78.00 Pure hypercholesterolemia, unspecified; E78.5 Hyperlipidemia, unspecified; F17.200 Nicotine dependence, unspecified, uncomplicated; F20.9 Schizophrenia, unspecified; I10 Essential (primary) hypertension; R94.31 Abnormal electrocardiogram [ECG] [EKG]; T38.0X5A Adverse effect of glucocorticoids and synthetic analogues, initial encounter; Z59.0 Homelessness; Z83.3 Family history of diabetes mellitus; Z91.19 Patient's noncompliance with other medical treatment and regimen